=== PATIENT | female | born 1960 | race Caucasian/White ===

== ENCOUNTER 2023-12-20 07:22 | Day surgery (SDC) | payer OTHER ==
[~2023-12-20] VITALS: Ht 157.5 cm; Wt 92.0 kg
[2023-12-20] MEDS ORDERED: Budeprion Xl300 MG (07:46)
[2023-12-20] MEDS ORDERED: Bentyl10 MG (07:47)
[2023-12-20] MEDS ORDERED: CLON1 (07:47)
[2023-12-20] MEDS ORDERED: ABILIFY MYCITE2 M2 (07:47)
[2023-12-20] MEDS ORDERED: ONDA8 (07:47)
[2023-12-20] MEDS ORDERED: ASPIR 8181 M1 (07:48)
[2023-12-20] MEDS ORDERED: CHLO25B (07:48)
[2023-12-20] MEDS ORDERED: Adipex-P37.5 M1 (07:48)
[2023-12-20] MEDS ORDERED: SYMBICORT 80-10.2 GM (07:49)
[2023-12-20] MEDS ORDERED: ASCORBIC ACID500 MG (07:49)
[2023-12-20] MEDS ORDERED: ONE DAILY MUL400 MCG (07:49)
[2023-12-20] MEDS ORDERED: propofoL 40 ML IV ONE (07:50)
[2023-12-20] MEDS ORDERED: DELESTROGE (07:50)
[2023-12-20] MEDS ORDERED: Lactated Ringer's 1,000 ML IV ONE ×2 (07:50→08:00)
[2023-12-20] MEDS ORDERED: HYDROCODONE-AC1 EA19 (07:50)
--- NOTE | 2023-12-20 08:56 | NUR ---
12/20/23 0856 [address] [place] HISTORY, CHART, MEDICATIONS AND ALLERGIES REVIEWED BEFORE START OF PROCEDURE. PATIENT CONFIRMS NPO STATUS AND AGREES WITH SCHEDULED PROCEDURE. 3-LEAD EKG REVIEWED WITH PHYSICIAN PRIOR TO START OF PROCEDURE. MONITOR INTACT WITH CONTINUOUS PULSE OXIMETRY,CAPNOGRAPHY, 3-LEAD EKG, INTERMITTENT BP. SUPPLEMENTAL O2 TO BE TITRATED THROUGHOUT PROCEDURE TO MAINTAIN O2 SATURATION ABOVE 90%. PATIENT DETERMINED TO BE ASA APPROPRIATE FOR PROPOFOL SEDATION PRIOR TO START OF PROCEDURE BY DR. CLARK.
== END 2023-12-20 09:44 | disposition home or self-care (01) ==
LOC: ORSCSDS 07:22
PROVIDERS: Internal Medicine Gastroenterology
PROC: 0DJD8ZZ Inspection of Lower Intestinal Tract, Via Natural or Artificial Opening Endoscopic (ICD-10-PCS; principal; 2023-12-20 08:45)
DX: R10.32 Left lower quadrant pain (principal); K58.2 Mixed irritable bowel syndrome; Z90.49 Acquired absence of other specified parts of digestive tract; K57.30 Diverticulosis of large intestine without perforation or abscess without bleeding; K64.8 Other hemorrhoids; Z87.891 Personal history of nicotine dependence; M79.7 Fibromyalgia; Z79.82 Long term (current) use of aspirin; Z79.899 Other long term (current) drug therapy
CPT/HCPCS: J2704; J7120